=== PATIENT | male | born 1985 | race Caucasian/White ===

== ENCOUNTER 2025-07-26 17:42 | Emergency (ER) | payer SELFPAY ==
[2025-07-26 17:45] VITALS: BP 132/86
[2025-07-26 18:05] LABS: Hematocrit 39.2 % (39.0-52.0); Hemoglobin 14.2 g/dL (13.0-18.0); Mean Corp Hgb Conc. 36.2 g/dL (33.0-37.0); Mean Corpuscular Volume 86.2 fL (80.0-94.0); Nucleated Red Blood Cells % 0 % (-); Platelet Count 183 10^3/uL (130-400); Red Cell Dist. Width 11.5 % (11.5-14.5)
[2025-07-26 18:17] LABS: ALT (SGPT) 29 U/L (0-50); AST (SGOT) 29 U/L (17-59); Albumin 5.0 g/dl (3.5-5.0); Alkaline Phosphatase 47 U/L (38-126); Blood Urea Nitrogen 16 mg/dl (9-20); Calcium 9.6 mg/dl (8.4-10.2); Carbon Dioxide 27 mmol/L (22-30); Chloride 105 mmol/L (98-107); Glucose 106 mg/dl (70-99); Potassium 3.8 mmol/L (3.5-5.1); Sodium 139 mmol/L (135-145); Total Protein 7.3 g/dl (6.3-8.2); eGFR > 60.00
[2025-07-26 18:28] LABS: Troponin I < 0.012 ng/ml
== END 2025-07-26 19:42 ==
LOC: EMR 17:42
PROVIDERS: Emergency Medicine
DX: R07.9 Chest pain, unspecified (principal); R06.02 Shortness of breath; Z53.21 Procedure and treatment not carried out due to patient leaving prior to being seen by health care provider
CPT/HCPCS: 99281; 80053; 84484; 85025; 93005

== ENCOUNTER 2025-07-27 04:25 | Emergency (ER) | payer BC, SELFPAY ==
[2025-07-27 04:42] VITALS: BP 127/77
[2025-07-27 05:09] LABS: Hematocrit 40.5 % (39.0-52.0); Hemoglobin 14.4 g/dL (13.0-18.0); Mean Corp Hgb Conc. 35.6 g/dL (33.0-37.0); Mean Corpuscular Volume 85.3 fL (80.0-94.0); Nucleated Red Blood Cells % 0 % (-); Platelet Count 163 10^3/uL (130-400); Red Cell Dist. Width 11.4 % (11.5-14.5)
[2025-07-27 05:34] LABS: ALT (SGPT) 33 U/L (0-50); AST (SGOT) 32 U/L (17-59); Albumin 5.0 g/dl (3.5-5.0); Alkaline Phosphatase 42 U/L (38-126); Blood Urea Nitrogen 14 mg/dl (9-20); Calcium 9.7 mg/dl (8.4-10.2); Carbon Dioxide 27 mmol/L (22-30); Chloride 107 mmol/L (98-107); Glucose 107 mg/dl (70-99); Potassium 4.2 mmol/L (3.5-5.1); Sodium 141 mmol/L (135-145); Total Protein 7.3 g/dl (6.3-8.2); eGFR > 60.00
[2025-07-27 05:44] LABS: Troponin I < 0.012 ng/ml
--- NOTE | 2025-07-27 06:41 | ED.GENMED ---
History of Present Illness
General
Chief Complaint: Chest Pain
Source: patient
Exam Limitations: none
Time Seen by Provider: 07/27/25 06:37
Nursing documentation reviewed up to this point in time: agreed with
History of Present Illness
History of Present Illness:
Note:
CHIEF COMPLAINT(S)
Chest pain.
HISTORY OF PRESENT ILLNESS
The patient is a 40-year-old male who presents with chest pain, which started last night. The pain was assessed previously, where blood tests and an electrocardiogram (ECG) ruled out cardiac causes, according to the patient. He describes the pain as
significant and feels like 'just a chest pain' with difficulty taking a deep breath. The pain is localized to the left side and increases with palpation. The patient mentioned concerns about a heart attack, influenced by his fathers past cardiac
events. He has not taken any medication for the pain but did take Ibuprofen previously. The patient returned for further evaluation to ensure thoroughness and due to persistent concerns.
PAST MEDICAL AND SURIGICAL HISTORY
No significant details provided in the conversation.
SOCIAL DETERMINANTS AFFECTING HEALTH
The patient mentioned being busy, which may imply stress or limited time for healthcare. He reports being a very light smoker, 'maybe once a month.'
PHYSICAL EXAM
General: Alert, no acute distress.
Skin: Warm, dry.
Head: Normocephalic, atraumatic.
Neck: Supple, trachea midline.
Eye Ears, mouth and throat: Oral mucosa moist.
Cardiovascular: Normal peripheral perfusion, No edema.
Respiratory: Respirations are non-labored.
Gastrointestinal: Abdomen nondistended.
Musculoskeletal: Palpation of the left upper chest increases pain.
Neurological: Alert and oriented to person, place, time, and situation, No focal neurological deficit observed.
Psychiatric: Cooperative, appropriate mood & affect.
PROBLEM LIST
Acute Problems:
- Chest pain with difficulty breathing and tenderness in the left upper chest.
PLAN
1. Obtain a chest x-ray to evaluate for rib strain or other structural causes.
2. Conduct blood tests to screen for blood clots.
3. Discuss the possibility of a rib strain as the likely cause of pain and difficulty breathing.
4. Recommend continued avoidance of strenuous activities that may exacerbate chest pain.
DIFFERENTIAL DIAGNOSIS
The Differential Diagnosis includes, in no particular order and is not limited to:
1. Musculoskeletal pain (rib strain)
2. Pulmonary embolism
3. Costochondritis
4. Gastroesophageal reflux disease (GERD)
5. Pleuritis
6. Pericarditis
7. Acute coronary syndrome
8. Anxiety or panic disorder
9. Aortic dissection
10. Pneumothorax
CARE-UPDATE
07/27/25 - 12:59
Stable chest wall pain, negative for acute coronary syndrome or pulmonary embolism, discharged with instructions to follow up with primary care.
EKG
My independent EKG interpretation is:
- Time of EKG: Not specified
- Rhythm: Normal sinus rhythm
- Heart Rate: Not specified
- RI Interval: Not specified
- QRS Duration: Not specified
- QT Interval: Normal
- [place]: Not specified
- Abnormalities: None observed
Disposition:
SUMMARY OF ENCOUNTER
The patient, a 40-year-old male, presented to the emergency department with chest pain that began the previous night. He reported the pain as significant and localized to the left side, increasing with palpation and exacerbated upon attempting a
deep breath. There were concerns about a potential heart attack due to his fathers past cardiac events. Previous tests, including blood work and ECG, ruled out cardiac causes. The patient returned for a thorough evaluation due to persistent
concerns. Examination suggested chest wall pain. Management included discussion on potential causes like rib strain, and screening for serious conditions via a chest x-ray and blood tests for clots.
DISPOSITION
Discharge
ASSESSMENT
Chest wall pain, likely musculoskeletal in nature, in the absence of acute coronary syndrome or pulmonary embolism.
PLAN
1. Obtain a chest x-ray to evaluate for rib strain or other causes.
2. Conduct blood tests to rule out blood clots.
3. Discuss the likelihood of rib strain as the cause.
4. Advise against strenuous activity to prevent exacerbating the pain.
INDEPENDENT REVIEW OF LABS AND INTERPRETATION OF TESTS
My independent EKG interpretation is normal sinus rhythm with no abnormalities observed.
PATIENT EDUCATION AND COUNSELING
The patient was counseled on the likely musculoskeletal nature of the pain and advised on lifestyle modifications to avoid exacerbation. Instructions were given to follow up with a primary care provider and to return if symptoms worsen or new
concerns arise.
FOLLOW-UP INSTRUCTIONS
Follow up with primary care for further evaluation and management, and return to the emergency department if any concerns arise.
MEDICAL DECISION MAKING
-Complexity of Data Reviewed: DDx list: Musculoskeletal pain (rib strain), Pulmonary embolism, Costochondritis, Gastroesophageal reflux disease (GERD), Pleuritis, Pericarditis, Acute coronary syndrome, Anxiety or panic disorder, Aortic dissection,
Pneumothorax.
-Data:
Category 2
My independent interpretation of EKG: Normal sinus rhythm.
-Risk:
Consideration of Admission/Observation: Escalation of care including admission/observation was considered given the complexity and risk of the patients presenting complaint, exam findings, and/or their underlying comorbidities. However, ultimately I
feel the patient is safe for outpatient management with close follow up. Reasoning: Work-up reassuring, does not reveal any acute life/organ threatening processes, patients symptoms well controlled upon reevaluation, reexamination is reassuring,
vitals are stable, patient agreeable with discharge, reliable for follow-up.
DIAGNOSIS
Chest wall pain, unspecified (ICD-10: R07.89)
Past History
Past History
ED Past Medical History: Other (Lumbar DJD)
ED Past Surgical History: Urological (vasectomy)
Social History
Tobacco: Non-smoker
Alcohol: Occasional
Personal:
Living: with family
Employment: Employed
Family History
Family History: Other (Noncontributory)
Phy Exam
Physical Exam
Physical Exam:
.
Scores
Heart Score for Chest Pain Patients
STEMI patient?: No
History: Slightly or Non-Suspicious
ECG: Normal
Age: </= 45 years
Risk Factors: No Risk Factors
Troponin: </= Normal Limit
Heart Score for Chest Pain Patients: 0
Heart Score Risk: 2.5% MACE over next 6 weeks
Course
Orders/Labs/Results
Orders:
Orders
07/27/25 04:47
EKG [Electrocardiogram (*1)] Urgent
Reason for Study: Chest Pain
EKG- Treatment ONCE
07/27/25 04:48
Chest [CR Chest - 2 Views ] Urgent
Comment:
Reason For Exam: chest pain, sob
07/27/25 05:03
Complete Blood Count/With Diff Urgent
Comprehensive Metabolic Panel Urgent
Troponin I Urgent
07/27/25 06:53
IV Insert/Care/Rem.- Treatment PRN
Ketorolac [Toradol] 15 mg IV NOW STA
07/27/25 07:11
D-Dimer Urgent
Abnormal Lab Results
07/27/25
05:03
RDW 11.4 L %
(11.5-14.5)
Absolute Lymphs (auto) 1.0 L 10^3/uL
(1.2-3.4)
Lymphocytes % 18.4 L %
(20.5-51.1)
Monocytes % 11.3 H %
(1.7-9.3)
Glucose 107 H mg/dl
(70-99)
07/27/25 05:03
07/27/25 05:03
Vital Signs
Initial and Last Documented VS:
Initial Vital Signs
Temp Pulse Resp BP Pulse Ox
98.4 F 96 16 127/77 97
07/27/25 04:42 07/27/25 04:42 07/27/25 04:42 07/27/25 04:42 07/27/25 04:42
Last Documented Vital Signs
Temp Pulse Resp BP Pulse Ox
98.4 F 73 19 119/73 98
07/27/25 04:42 07/27/25 08:30 07/27/25 08:30 07/27/25 08:00 07/27/25 08:30
*Pulse Oximetry
SaO2: 97
Oxygen Mode of Delivery: Room air
Patient hypoxic: no
*Critical Care Note
Total Time (30-74mins, 75-104mins- exclusive of procedures): Not Applicable
ED Attending Note
-
Portions of this chart may have been created with voice recognition software.� Occasional wrong word or��sound alike� substitutions may have occurred due to the inherent limitations of voice recognition software.
Discharge Plan
Departure
Patient Disposition: Home (Routine Discharge)
Date of Disposition: 07/27/25
Time of Disposition: 08:28
Patient with high blood pressure during this ER visit?: No
Discharge Problem:
Chest pain
Instructions: Chest Pain That Is Not Caused by the Heart (DC)
Prescriptions:
No Action
meloxicam 7.5 MG tablet
7.5 mg PO BID
cyclobenzaprine 10 MG tablet
10 mg PO TIDPRN PRN (Reason: muscle spasm) Qty: 13 0RF
prednisone 10 MG tablet
10 mg PO .TAPER Qty: 30 0RF
Rx Instructions:
Take 40mg daily x3days, 30mg daily x3days,
20mg daily x3days, 10mg daily x3days.
hydrocodone-acetaminophen 1 EACH tablet
1 ea PO TIDPRN PRN (Reason: moderate pain) Qty: 12 0RF
Referrals:
Avis Cyril,Ke, NEPHROLOGY NURSE [Family Provider, Family Practice] - Call in 1-3 days for appt
Interventions
Interventions:
*Risk Screen - Suicide Last Done: 07/27/25 04:42
*General Assessment Last Done: 07/27/25 04:42
*Neglect/Abuse Screening Last Done: 07/27/25 04:42
*ED- Fall Risk Assessment Last Done: 07/27/25 04:42
*ED COVID-19 Vaccine History Last Done: 07/27/25 04:42
*Nursing Disposition Last Done: 07/27/25 08:59
ED- Cardiac Assessment Last Done: 07/27/25 08:00
Discharge Date and Time
Discharge Date/Time: 07/27/25 08:59
Print Language: BANGLADESHI
[2025-07-27] MEDS: TORADOL 15 MG IV (07:11)
[2025-07-27 07:12] VITALS: BP 122/91
[2025-07-27 07:47] LABS: D-Dimer 0.43 ug/mlFEU (0.00-0.50)
[2025-07-27 08:00] VITALS: BP 119/73
== END 2025-07-27 08:59 | disposition home or self-care (01) ==
LOC: EMR 04:25
PROVIDERS: Emergency Medicine; EMERGENCY PHYSICIAN Emergency Medicine; FAMILY PHYSICIAN Nurse Practitioner Family
DX: R07.89 Other chest pain (principal)
CPT/HCPCS: 99285; 96374; 71046; 80053; 84484; 85025; 85379; 93005